=== PATIENT | female | born 1965 | race Caucasian/White ===

== ENCOUNTER → 2019-08-06 | Outpatient (CLI) | payer BC ==
[~2019-08-06] MED LIST: ALPR0.25 PO; AMLO2.5T5 PO; BUPR100T7 PO; VENL37.5 PO
--- NOTE | 2019-08-06 15:40 | KCIC ---
Bilateral digital screening mammograms with 3-D tomosynthesis: Reason for examination: Routine screening. Comparison is made to previous studies dated 09/21/2013 and 06/01/2008. Bilateral mammograms in CC and oblique projections were obtained with 2-D imaging and 3-D tomosynthesis imaging on a Siemens Inspiration unit and reviewed on the workstation. Interpretation was made with the benefit of CAD. The skin and nipples show no abnormalities. No abnormal axillary lymph nodes are seen. The breast parenchyma is extremely dense. (Breast density: Category D.) There are small nodular densities seen bilaterally which are fairly well-circumscribed. These may represent cysts. The largest are located in the 4:00 B and C positions of the right breast and in the 2:00 B, 8:00 B and 9:00 C positions of the left breast. Recommend further evaluation with ultrasound. There are no suspicious calcifications. Impression: Bilateral breast nodules which may represent cysts but recommend further evaluation with ultrasound. Your patient's mammogram demonstrates that she has dense breast tissue (breast density category C or D), which could hide abnormalities, and if she has other risk factors for breast cancer that have been identified, she might benefit from supplemental screening tests that may be suggested by you as her ordering physician. Dense breast tissue, in and of itself, is a relatively common condition. Therefore, this information is not provided to cause undue concern, but rather to raise your awareness and to promote discussion with your patient regarding the presence of other risk factors, in addition to dense breast tissue. Your patient's mammography results will be sent to her. BI-RAD Category 0: Incomplete. Needs additional imaging evaluation. "Our facility is accredited by the [employer] Mammography [employer]." This patient's information has been entered into a reminder system for the patient to be notified with the results of her examination and a target date for the next mammogram. Electronically signed by: Sylvie De Guzman MD (08/06/2019 3:37 PM) [id number]
== END | disposition home or self-care (01) ==
LOC: KCIC MAMMO 12:56
PROVIDERS: ATTEND Nurse Practitioner Family
DX: Z12.31 Encounter for screening mammogram for malignant neoplasm of breast (principal); N63.20 Unspecified lump in the left breast, unspecified quadrant; N63.10 Unspecified lump in the right breast, unspecified quadrant
CPT/HCPCS: 77063; 77067

== ENCOUNTER → 2019-08-19 | Outpatient (CLI) | payer BC ==
--- NOTE | 2019-08-20 07:44 | KCIC ---
Bilateral breast ultrasound: Reason for examination: Bilateral nodules on screening mammogram. Comparison is made to mammographic examination dated 08/06/2019. Bilateral whole breast ultrasound including evaluation of all 4 quadrants and the retroareolar and axillary regions of both breasts was performed. In the 4:00 position 3.5 cm from the nipple, there is an 8.5 mm septated cystic lesion. In the 4:00 position 6 cm from the nipple, there is a 7.6 mm fibrocystic type lesion. In the 12:00 position 7 cm from the nipple, there is a 4.8 mm fibrocystic lesion. In the 8:00 position 4.5 cm from the nipple, there is a hypoechoic circumscribed 5.4 mm lesion consistent with probable complicated cyst. In the 10:00 position 5.5 cm from the nipple, there is a hypoechoic circumscribed lesion measuring 6.9 mm in greatest dimension with some posterior acoustic enhancement. This probably represents a complicated cyst. No suspicious-appearing nodules are seen. No abnormal appearing lymph nodes are seen in the axilla. In the left breast at the 1:00 position 6 cm from the nipple, there is a circumscribed 1.1 cm hypoechoic lesion probably representing a complicated cyst. In the 1:00 position 7 cm from the nipple, there is an 8.2 mm hypoechoic circumscribed lesion also probably representing a complicated cyst. In the 8:00 position 3.5 cm from the nipple, there are 2 small hypoechoic circumscribed lesions measuring 8.1 mm each consistent with complicated cysts. In the 9:00 position 2.5 cm from the nipple, there is a 5.6 mm cystic-appearing lesion. No solid suspicious-appearing nodules are seen. No abnormal appearing lymph nodes are seen in the axilla. IMPRESSION: Multiple small anechoic and hypoechoic lesions consistent with simple and complicated cysts and fibrocystic lesions. No grossly suspicious lesions are seen. Recommend 6 month follow-up with ultrasound. BI-RADS Category 3: Probably Benign. "Our facility is accredited by the [employer] Mammography [employer]." This patient's information has been entered into a reminder system for the patient to be notified with the results of her examination and a target date for the next mammogram. Electronically signed by: Sylvie De Guzman MD (08/20/2019 7:40 AM) [place] [id number]
== END | disposition home or self-care (01) ==
LOC: KCIC US 12:39
PROVIDERS: ATTEND Nurse Practitioner Family
DX: N63.20 Unspecified lump in the left breast, unspecified quadrant (principal); N63.10 Unspecified lump in the right breast, unspecified quadrant; N60.02 Solitary cyst of left breast; N60.01 Solitary cyst of right breast; N64.89 Other specified disorders of breast; Z12.31 Encounter for screening mammogram for malignant neoplasm of breast
CPT/HCPCS: 76641

== ENCOUNTER → 2019-09-22 | Outpatient (CLI) | payer BC ==
[~2019-09-22] MED LIST changes: +GADOTERATE 7.5 MMOL/15ML VIAL. IVP ONE; +METH2.5T PO
--- NOTE | 2019-09-22 15:01 | KCIC ---
MRI of the Brain without and with Contrast 09/22/2019 Clinical History: History of cavernous angiomas. Worsening arm weakness, right greater than left. Technique: Unenhanced T1-weighted sagittal and axial and FLAIR, T2-weighted and diffusion-weighted axial images of the brain were obtained. After the intravenous administration of 12 cc of DOTAREM, enhanced T1-weighted axial, sagittal and coronal images of the brain were obtained. Findings: Comparison study is dated 08/28/2016. The patient is post right occipital craniotomy. A cavernous angioma is seen involving the inferior shyanne, right greater than left which measures 1.2 cm in size. This is unchanged. There is no surrounding edema or associated mass effect. Somewhat rounded areas of decreased signal intensity are seen on the gradient echo images involving the right frontoparietal lobe, the medial parietal lobes and the left frontal lobe. These measure 2 mm to 9 mm in greatest diameter. They are consistent with cavernous angiomas. They have not not significantly changed. There is no surrounding edema or associated mass effect. The ventricles and sulci are within normal limits in size and configuration. No acute parenchymal abnormality is seen. No extra-axial fluid collection is noted. There is no MRI evidence of acute ischemia/infarction. No area of abnormal contrast enhancement is seen. Mild mucosal thickening in seen scattered throughout the paranasal sinuses. There are small to moderate-sized bilateral mastoid effusions, right greater than left. IMPRESSION: Stable MRI appearance of the cavernous angiomas as discussed above. No acute parenchymal abnormality is seen. Electronically signed by: Luciano Coker MD (09/22/2019 2:58 PM) [id number]
--- NOTE | 2019-09-22 16:03 | KCIC ---
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 Worsening bilateral arm weakness, right greater than left. TECHNIQUE: Unenhanced T1-weighted, T2-weighted and inversion recovery sagittal and gradient echo, T2-weighted and T1-weighted axial images of the cervical spine were obtained. After the intravenous administration of 12 cc of DOTAREM, enhanced T1-weighted sagittal and axial images of the cervical spine were obtained. FINDINGS: Comparison study is dated 09/13/2014. Mild lateral curvature of the cervical spine is seen convex to the right. The patient is post laminectomy at C7-T1. Magnetic susceptibility artifact related to fusion hardware is again seen. Decreased signal intensity is seen on the gradient echo and T2-weighted images involving the posterior aspect of the cervical spinal cord which measures 5 mm in greatest diameter. This is unchanged since the previous examination. No new area of abnormal signal intensity is seen involving the cervical spinal cord. No area of abnormal contrast enhancement is noted. Degenerative changes are seen throughout the cervical disc spaces consisting of minimal to mild generalized disc bulges and degenerative changes involving the uncovertebral and facet joints. These findings do not result in significant central spinal canal stenosis at any level. Mild left greater than right neural foraminal stenosis is seen at C3-4. IMPRESSION: 1. Post laminectomy at C7-T1. Decreased signal intensity is seen involving the posterior aspect of the cervical spinal cord at this level, unchanged. No new area of abnormal signal intensity is seen involving the cervical spinal cord. No area of abnormal contrast enhancement is noted. 2. Degenerative changes are seen involving the cervical spine. These findings do not result in significant central spinal canal stenosis. Mild left greater than right neural foraminal stenosis is seen at C3-4. Electronically signed by: Luciano Coker MD (09/22/2019 4:00 PM) [id number]
== END | disposition home or self-care (01) ==
LOC: KCIC MRI 10:30
PROVIDERS: ATTEND Student in an Organized Health Care Education/Training Program
DX: J34.89 Other specified disorders of nose and nasal sinuses (principal); Q28.3 Other malformations of cerebral vessels; M48.02 Spinal stenosis, cervical region; M47.812 Spondylosis without myelopathy or radiculopathy, cervical region; I10 Essential (primary) hypertension; Z86.73 Personal history of transient ischemic attack (TIA), and cerebral infarction without residual deficits; Z88.5 Allergy status to narcotic agent
CPT/HCPCS: 70553; 72156; A9575

== ENCOUNTER → 2020-08-30 | Outpatient (CLI) | payer BC ==
[~2020-08-30] MED LIST changes: -GADOTERATE 7.5 MMOL/15ML VIAL. IVP ONE
--- NOTE | 2020-08-30 11:46 | KCIC ---
Bilateral diagnostic digital mammograms with 3-D tomosynthesis: Reason for examination: Follow-up nodules. Comparison is made to previous studies dated 08/06/2019 and 09/21/2013. Bilateral mammograms in CC and oblique projections were obtained with 2-D imaging and 3-D tomosynthesis imaging on a Siemens Inspiration unit and reviewed on the workstation. Interpretation was made with the benefit of CAD. The skin and nipples show no abnormalities. No abnormal axillary lymph nodes are seen. The breast parenchyma is extremely dense. (Breast density: Category D.) There continue to be small nodular asymmetries bilaterally. There are no suspicious calcifications. A few benign calcifications however are seen. Biopsy clip remains present on the left. Impression: Dense breast parenchymal with small nodular parenchymal densities bilaterally. Ultrasound to follow. Your patient's mammogram demonstrates that she has dense breast tissue (breast density category C or D), which could hide abnormalities, and if she has other risk factors for breast cancer that have been identified, she might benefit from supplemental screening tests that may be suggested by you as her ordering physician. Dense breast tissue, in and of itself, is a relatively common condition. Therefore, this information is not provided to cause undue concern, but rather to raise your awareness and to promote discussion with your patient regarding the presence of other risk factors, in addition to dense breast tissue. Your patient's mammography results will be sent to her. BI-RAD Category 0: Incomplete. Needs additional imaging evaluation. Bilateral breast ultrasound: Ultrasound examination of the breasts and axilla was performed bilaterally. In the right breast, there continue to be multiple small anechoic and hypoechoic cystic and fibrocystic lesions with the largest fibrocystic lesion at the 4:00 position measuring 6.2 mm in size. No suspicious nodules are seen. No abnormal appearing lymph nodes are seen in the axilla. In the left breast, there continue to be multiple small cystic and fibrocystic lesions with the largest cyst at the 1:00 position measuring approximately 11 mm in greatest dimension. No suspicious-appearing nodules are seen. No abnormal appearing lymph nodes are seen in the axilla. IMPRESSION: Continued presence of benign-appearing cystic and fibrocystic lesions with some interval improvement when compared to previous exam. No suspicious lesion seen. Recommend routine mammographic follow-up. BI-RADS Category 2: Benign. "Our facility is accredited by the [employer] Mammography [employer]." This patient's information has been entered into a reminder system for the patient to be notified with the results of her examination and a target date for the next mammogram. Electronically signed by: Sylvie De Guzman MD (08/30/2020 11:43 AM) [email or web address]
== END ==
LOC: KCIC MAMMO 08:35
PROVIDERS: ATTEND Family Medicine
DX: N60.02 Solitary cyst of left breast (principal); R92.8 Other abnormal and inconclusive findings on diagnostic imaging of breast
CPT/HCPCS: 76641; 77066; G0279; 77062

== ENCOUNTER → 2021-10-16 | Outpatient (CLI) | payer BC, MEDICARE ==
[~2021-10-16] MED LIST changes: +BUPR150T15 PO; +CYCL10TA19 PO; +GADOTERATE 7.5 MMOL/15ML VIAL. IVP ONE; +HYDR-2761 PO
--- NOTE | 2021-10-16 16:21 | KCIC ---
EXAMINATION: Magnetic resonance imaging (MRI) of the cervical spine with and without contrast 021 10:25 AM HISTORY: Radicular neck pain. TECHNIQUE: Multiplanar multi-weighted MRI of the cervical spine was performed with and without intrav enous contrast using the standard cervical spine protocol. Contrast information: Gadolinium based contrast COMPARISON: MRI cervical spine 09/22/2019 FINDINGS: There is 2 mm retrolisthesis of C3 on C4. There is disc desiccation at all levels of the cervical spi ne. No significant disc height loss. Vertebral bodies demonstrate normal signal intensity on all sequ ences. No acute fracture is identified; however, if trauma is suspected, a CT scan would be a more s ensitive examination for fractures. The craniocervical junction is normal. The visualized portions of the skull base and the posterior fossa are normal. The spinal cord demonstrates normal signal int ensity on all sequences. No soft tissue abnormality is identified. Normal signal voids are present in the vertebral arteries. C2-C3: The disk is normal in configuration. There is no facet arthropathy. There is no uncovertebral joint disease. There is no neuroforaminal stenosis. There is no spinal canal stenosis. C3-C4: There is mild disc bulge. Mild facet arthropathy. Mild left uncovertebral joint disease. Mild to moderate left and mild right neural femoral stenosis. No spinal canal stenosis. C4-C5: Disc is normal in configuration. No significant facet arthropathy. No uncovertebral joint dise ase. No neuroforaminal or spinal canal stenosis. C5-C6: There is mild disc bulge. Mild facet arthropathy. No uncovertebral joint disease. No neurofora edison or spinal canal stenosis. C6-C7: Mild disc bulge. Mild facet arthropathy. Post surgical changes identified posteriorly. No resi dual spinal canal stenosis. No neuroforaminal stenosis. C7-T1: Prominent changes are identified. Minimal residual T2 signal hypointensity involving the poste rior cervical cord at this level. No suspicious enhancement. There may be faint residual enhancement likely reactive on the post surgical margins. IMPRESSION: Post surgical changes are identified from laminectomy decompression at C6-C7 and C7-T1. No residual s brandon canal stenosis. Focal cord signal alteration involving the posterior central cord without intri nsic T2 signal hypointensity appears stable. No disease progression. No suspicious enhancement. Electronically signed by: Jesenia Scott MD (10/16/2021 4:19 PM) [id number]
--- NOTE | 2021-10-16 16:25 | KCIC ---
EXAMINATION: Magnetic resonance imaging (MRI) of the brain and brainstem without and with contrast 10:25 AM HISTORY: Cervical myelopathy. Cerebral cavernoma. TECHNIQUE: Multiplanar multi-weighted MRI of the brain and brainstem was performed without and with i ntravenous contrast using the general brain protocol. Contrast information: 12 mL Gadolinium based contrast COMPARISON: MRI brain 09/22/2019 FINDINGS: The scalp and calvarium are normal. The superior sagittal sinus demonstrates normal venous flow. The corpus callosum is normal in shape and signal intensity. The posterior fossa is unremarkable. The p ituitary and sella are normal. Stable T2 hypointense mass within the shyanne asymmetric to the right me asuring approximately 10 x 10 mm with central T2 signal hyperintensity associated susceptibility [place] fact most consistent with a cavernoma. Posterior to the left splenium of the corpus callosum there is an additional similar finding measuring 0.6 cm, stable (series 6, image 16). Along the posterior asp ect of the right superior gyrus there is an area of T2 signal hypointensity which measures approximat rebecca 0.9 cm, previously measuring 0.6 cm. Associated susceptibility artifact is increased as well. Con sideration may be on for interval hemorrhage (series 6, image 18). There is no definite FLAIR signal alteration within this region. Similar linear susceptibility artifact identified along the right post erior frontal lobe. No significant enhancement is identified. Diffusion weighted images reveal no hyperintensities to suggest acute cerebral infarction. No hydroce phalus. Ventricles are normal in morphology. The visualized portions of the mastoids are unremarkabl e. The orbits appear normal. Normal flow voids are demonstrated in the carotid arteries and basilar artery. Mild mucosal thickening of the anterior ethmoid air cells. IMPRESSION: Reconstruction of multifocal cavernoma is within the brain and brainstem as detailed above. Increase in size of a right posterior single gyrus cavernoma which could reflect interval hemorrhage. Electronically signed by: Jesenia Scott MD (10/16/2021 4:23 PM) [id number]
== END ==
LOC: KCIC MRI 10:07
PROVIDERS: ATTEND Student in an Organized Health Care Education/Training Program
DX: Q28.3 Other malformations of cerebral vessels (principal); R22.0 Localized swelling, mass and lump, head; J32.2 Chronic ethmoidal sinusitis; G95.9 Disease of spinal cord, unspecified; M50.21 Other cervical disc displacement, high cervical region; M48.02 Spinal stenosis, cervical region; M48.8X2 Other specified spondylopathies, cervical region; Z98.1 Arthrodesis status
CPT/HCPCS: 70553; 72156; A9575

== ENCOUNTER → 2021-10-25 | Outpatient (CLI) | payer MEDICARE, BC ==
[~2021-10-25] MED LIST changes: -GADOTERATE 7.5 MMOL/15ML VIAL. IVP ONE
--- NOTE | 2021-10-25 12:45 | KCIC ---
Bilateral digital screening mammograms with 3-D tomosynthesis: Reason for examination: Routine screening. Comparison is made to previous studies dated back to 10/19/2013. Bilateral mammograms in CC and oblique projections were obtained with 2-D imaging and 3-D tomosynthes is imaging on a Siemens Inspiration unit and reviewed on the workstation. Interpretation was made wit h the benefit of CAD. The skin and nipples show no abnormalities. No abnormal axillary lymph nodes are seen. The breast par enchyma is extremely dense. (Breast density: Category D.) There is a new 9.2 mm circumscribed nodule at the 2:00 position of the left breast approximately 7.5 cm from the nipple. Further evaluation with ultrasound is recommended. There are no other new dominant masses, suspicious calcifications or arch itectural distortion. Benign calcifications are present. Biopsy clip remains present on the left Impression: New 9.2 mm circumscribed nodule at the 2:00 position of the left breast approximately 7.5 cm from the nipple. Recommend further evaluation with ultrasound. Your patient's mammogram demonstrates that she has dense breast tissue (breast density category C or D), which could hide abnormalities, and if she has other risk factors for breast cancer that have bee n identified, she might benefit from supplemental screening tests that may be suggested by you as her ordering physician. Dense breast tissue, in and of itself, is a relatively common condition. Therefo re, this information is not provided to cause undue concern, but rather to raise your awareness and t o promote discussion with your patient regarding the presence of other risk factors, in addition to d ense breast tissue. Your patient's mammography results will be sent to her. BI-RAD Category 0: Incomplete. Needs additional imaging evaluation. "Our facility is accredited by the [employer] Mammography [employer]." This patient's information has been entered into a reminder system for the patient to be notified wit h the results of her examination and a target date for the next mammogram. Electronically signed by: Sylvie De Guzman MD (10/25/2021 12:43 PM) [email or web address]
== END ==
LOC: KCIC MAMMO 08:43
PROVIDERS: ATTEND Family Medicine
DX: Z12.31 Encounter for screening mammogram for malignant neoplasm of breast (principal)
CPT/HCPCS: 77063; 77067

== ENCOUNTER → 2021-11-15 | Outpatient (CLI) | payer MEDICARE, BC ==
--- NOTE | 2021-11-15 12:19 | KCIC ---
Left breast ultrasound: Reason for examination: Nodule on screening mammogram. Comparison is made to mammographic exam dated 10/21/2021 and previous ultrasound examination dated . Ultrasound examination of the left breast and axilla was performed. At the 2:00 position 7 cm from the nipple, there is a 9.1 mm cystic lesion. No solid suspicious-appea ring nodules are seen. No abnormal appearing lymph nodes are seen in the axilla. IMPRESSION: 9.1 mm cystic lesion at the 2:00 position appears to correspond with the area of mammographic concern . No suspicious abnormalities are seen. Recommend routine mammographic follow-up. BI-RADS Category 2: Benign. "Our facility is accredited by the [employer] Mammography [employer]." This patient's information has been entered into a reminder system for the patient to be notified wit h the results of her examination and a target date for the next mammogram. Electronically signed by: Sylvie De Guzman MD (11/15/2021 12:16 PM) [email or web address]
== END ==
LOC: KCIC US 10:43
PROVIDERS: ATTEND Family Medicine
DX: N64.89 Other specified disorders of breast (principal)
CPT/HCPCS: 76641